=== PATIENT | male | born 1970 | race African-American/Black ===

== ENCOUNTER 2019-04-20 10:52 | Emergency (ER) | payer SELFPAY ==
[2019-04-20 11:08] VITALS: BP 133/91; PULSE 70; TEMP 97.9; BMI 26.8
--- NOTE | 2019-04-20 11:16 | PDOC ---
History of Present Illness - General Chief Complaint: Back Pain Stated Complaint: LWR BACK PAIN Time Seen by Provider: 04/20/19 11:14 History Source: Patient - History of Present Illness Initial Comments: 04/20/19 12:02 Chief complaint: Lower back pain A 48-year-old male with no significant medical history who states this morning at work he felt a twinge in his back, and now has lower back pain similar to her episodes of sciatica. Patient states he may return in the wrong way. Patient has no numbness, incontinence or saddle anesthesia. Patient did not take meds. This happened about an hour in the past. GENERAL/CONSTITUTIONAL: No fever, weakness. dizziness HEAD, EYES, EARS, NOSE AND THROAT: No change in vision. No ear pain or discharge. No sore throat. CARDIOVASCULAR: No chest pain RESPIRATORY: No shortness of breath or cough GASTROINTESTINAL: No pain, nausea, vomiting, diarrhea or constipation GENITOURINARY: No dysuria MUSCULOSKELETAL: No neck +back pain SKIN: No rash NEUROLOGIC: No headache, vertigo, loss of consciousness, or loss of sensation. GENERAL: The patient is awake, alert, and fully oriented, in no acute distress. HEAD: Normal with no signs of trauma. EYES: Pupils equal, round and reactive to light, sclera anicteric, conjunctiva clear. ENT: pharynx: no erythema, no exudate, uvula midline NECK: supple CHEST: clear, nontender, rr ABD: soft, nontender BACK: Left SI tenderness EXTREMITIES: Normal range of motion, no edema. NEUROLOGICAL: Normal speech, normal gait. Strength 5 out of 5, upper and lower extremities. SKIN: Warm, Dry Past History - Past Medical History Allergies/Adverse Reactions: Allergies Allergy/AdvReac Type Severity Reaction Status Date / Time iodine Allergy Verified 04/20/19 11:08 cats Allergy Uncoded 04/20/19 11:08 Home Medications: Ambulatory Orders Cyclobenzaprine HCl [Flexeril 10 mg] 10 mg PO TID PRN #21 tablet 04/20/19 COPD: No - Surgical History Abdominal Surgery: Yes (hernia) - Suicide/Smoking/Psychosocial Hx Smoking History: Former smoker Have you smoked in the past 12 months: No If you are a former smoker, when did you quit?: 2008 Information on smoking cessation initiated: No Hx Alcohol Use: No Drug/Substance Use Hx: No *Physical Exam - Vital Signs Last Vital Signs Temp Pulse Resp BP Pulse Ox 97.9 F 70 20 133/91 98 04/20/19 11:06 04/20/19 11:06 04/20/19 11:06 04/20/19 11:06 04/20/19 11:06 Medical Decision Making - Medical Decision Making 04/20/19 12:07 48-year-old male who was at work, turned, felt a twinge in his back pain in his lower back, for 1 hour, did not take any medicine. No neurological symptoms , no numbness, incontinence or saddle anesthesia. Patient is ambulatory. Patient offered Motrin versus Toradol, patient wants Motrin. Patient will also give prescription for Flexeril. Will be given orthofollow-up *DC/Admit/Observation/Transfer Diagnosis at time of Disposition: Lower back injury Qualifiers: Encounter type: initial encounter Qualified Code(s): S39.92XA - Unspecified injury of lower back, initial encounter - Discharge Dispostion Disposition: HOME Condition at time of disposition: Stable Decision to Admit order: No - Prescriptions Prescriptions: Cyclobenzaprine HCl [Flexeril 10 mg] 10 mg PO TID PRN #21 tablet PRN Reason: Back Pain - Referrals Referrals: Jhonatan Christiansen DO [Staff Physician] - - Patient Instructions Printed Discharge Instructions: DI for Low Back Pain Additional Instructions: No heavy lifting or bending Apply ice to the area 20 minutes every 2 hours for the next 2 days Continue taking Motrin 600 mg every 6 hours for pain. If still in pain he can also take Flexeril one tablet 3 times a day Return to the nearest ER if numbness, weakness, severe pain, problems with urinating or having bowel movements. Call orthopedist today for an appointment for further evaluation - Post Discharge Activity Forms/Work/School Notes: Back to Work
[2019-04-20] MEDS ORDERED: IBUPROFEN 600 MG TABLET (FP) PO ONE ×2 (11:27→11:29)
== END 2019-04-20 11:45 | disposition home or self-care (01) ==
LOC: JERFT 10:52
DX: M54.5 Low back pain (principal); Z87.891 Personal history of nicotine dependence
CPT/HCPCS: 99282-25